=== PATIENT | male | born 1960 | race Caucasian/White ===

== ENCOUNTER → 2020-11-11 07:59 | Outpatient (CLI) | payer OTHER, SELFPAY ==
[2020-11-11] MEDS: COVID-19 VACC #1, MRNA(MOD) 100 MCG/0.5 ML VIAL IM (08:03)
== END ==
PROVIDERS: Visit Provider Internal Medicine
DX: Z23 Encounter for immunization (principal)
CPT/HCPCS: 0011A; 91301

== ENCOUNTER → 2020-12-10 08:02 | Outpatient (CLI) | payer OTHER, SELFPAY ==
[2020-12-10] MEDS: COVID-19 VACC #2, MRNA(MOD) 100 MCG/0.5 ML VIAL IM (08:13)
== END ==
PROVIDERS: Visit Provider Internal Medicine
DX: Z23 Encounter for immunization (principal)
CPT/HCPCS: 0012A; 91301